=== PATIENT | female | born 1965 | race Caucasian/White ===

== ENCOUNTER 2017-08-12 17:33 | Emergency (ER) | payer OTHER ==
[~2017-08-12] VITALS: Ht 162.6 cm; Wt 70.5 kg
[~2017-08-12 17:33] MED LIST: CELEXA 20MG20 MG/TAB PO; LORTAB 5/500 501 TAB PO; NORCO 325 MG-7.1 TAB PO; [UNRECOGNIZED DRUG - OTHER]
[2017-08-12 17:36] VITALS: PULSE 79; TEMP 97.1
[2017-08-12] MEDS ORDERED: LO LOESTRIN FE1 TAB PO (19:57)
[2017-08-12] MEDS ORDERED: ZYRTEC 10MG10 MG PO (19:58)
[2017-08-12] MEDS ORDERED: ZOCOR 10MG10 MG PO (19:58)
[2017-08-12] MEDS ORDERED: CELEXA10 MG PO (19:58)
[2017-08-12] MEDS ORDERED: ASPIRIN 81M81 MG/TA2 PO (19:58)
[2017-08-12 22:14] VITALS: BP 178/98
== END 2017-08-12 22:14 | disposition home or self-care (01) ==
LOC: COL.ER 17:33
DX: S92.512A Displaced fracture of proximal phalanx of left lesser toe(s), initial encounter for closed fracture (principal); E78.00 Pure hypercholesterolemia, unspecified; Z79.82 Long term (current) use of aspirin; W22.8XXA Striking against or struck by other objects, initial encounter; Y92.009 Unspecified place in unspecified non-institutional (private) residence as the place of occurrence of the external cause
CPT/HCPCS: J3010

== ENCOUNTER 2018-06-30 19:24 | Emergency (ER) | payer OTHER ==
[~2018-06-30] VITALS: Ht 162.6 cm; Wt 67.7 kg
[~2018-06-30 19:24] MED LIST changes: +ASPIRIN 81M81 MG/TA2 PO; +CELEXA10 MG PO; +LO LOESTRIN FE1 TAB PO; +ZOCOR 10MG10 MG PO; +ZYRTEC 10MG10 MG PO
[2018-06-30 19:30] VITALS: TEMP 97.3
[2018-06-30 20:10] LABS: HEMATOCRIT 38.6 % (37.0-47.0); HEMOGLOBIN 13.1 g/dl (12.5-16.0); MEAN CELL VOLUME 88 fl (80.0-100.0); MEAN CORPUSCULAR HEMOGLOBIN 30 pg (27.0-31.0); MEAN CORPUSCULAR HGB CONC 34 g/dl (33.0-37.0); MEAN PLATELET VOLUME 9.6 fl (7.4-10.4); PLATELET COUNT 333 K/mm3 (130-400); RED BLOOD COUNT 4.37 M/mm3 (4.10-5.30); REDCELL DISTRIBUTION WIDTH-CV 11.9 % (11.5-14.5)
[2018-06-30 20:19] LABS: INR 0.9 (0.8-3.0); PROTHROMBIN TIME 10.6 SECONDS (9.7-12.8)
[2018-06-30 20:24] LABS: D-DIMER < 200.00 ng/mLDDu (200-230)
[2018-06-30 20:25] LABS: ALANINE AMINOTRANSFERASE 32 U/L (9-52); ALBUMIN 4.2 gm/dL (3.5-5.0); ALKALINE PHOSPHATASE 61 U/L (50-136); ANION GAP 7 mmol/L (7-16); AST,SGOT 46 U/L (15-37); BILIRUBIN,TOTAL 0.6 mg/dL (0.0-1.0); BLOOD UREA NITROGEN 16 mg/dL (7-17); CALCIUM 9.5 mg/dL (8.4-10.2); CARBON DIOXIDE 34 mmol/L (22-30); CHLORIDE 97 mmol/L (98-107); CREATININE, serum 0.86 mg/dL (0.52-1.25); GLUCOSE 128 mg/dL (74-106); POTASSIUM 3.2 mmol/L (3.4-5.0); SODIUM 138 mmol/L (137-145); TOTAL PROTEIN 7.4 gm/dL (6.4-8.2)
[2018-06-30 20:28] LABS: BAND 6 % (0-10); NEUTROPHILS 52 % (42.0-75.2); PLATELET ESTIMATE NORMAL (NORMAL)
[2018-06-30 20:29] LABS: LYMPHOCYTE 40 % (20.0-51.0)
[2018-06-30 20:37] LABS: TROPONIN-I < 0.012 ng/mL (0.000-0.034)
[2018-06-30] MEDS ORDERED: HCTZ 25MG TAB25 MG PO (21:04)
[2018-06-30] MEDS ORDERED: HYGROTON 2525 MG/TAB PO (21:05)
[2018-06-30 21:50] VITALS: BP 120/73; PULSE 78
[2018-06-30] MEDS ORDERED: TESSALON PERLE200 MG PO (22:13)
[2018-06-30] MEDS ORDERED: ZITHROMAX500 M2 PO (22:13)
== END 2018-06-30 22:40 | disposition home or self-care (01) ==
LOC: COL.ER 19:24
PROVIDERS: Emergency Medicine
DX: J20.9 Acute bronchitis, unspecified (principal); E87.6 Hypokalemia; J10.1 Influenza due to other identified influenza virus with other respiratory manifestations; E78.5 Hyperlipidemia, unspecified; Z98.890 Other specified postprocedural states; Z79.82 Long term (current) use of aspirin
CPT/HCPCS: A4216; J0696; J2405; J3010; J7030

== ENCOUNTER → 2022-08-22 | Outpatient (CLI) | payer OTHER ==
[~2022-08-22] MED LIST changes: +HCTZ 25MG TAB25 MG PO; +HYGROTON 2525 MG/TAB PO; +TESSALON PERLE200 MG PO; +ZITHROMAX500 M2 PO
== END ==
LOC: MHCPAIN 13:23
DX: M47.892 Other spondylosis, cervical region (principal); M54.12 Radiculopathy, cervical region; M54.6 Pain in thoracic spine; M25.511 Pain in right shoulder
CPT/HCPCS: G0463

== ENCOUNTER → 2022-09-04 | Outpatient (CLI) | payer OTHER | LOC: MHCPAIN 14:44 | DX: M47.812 Spondylosis without myelopathy or radiculopathy, cervical region (principal); M54.12 Radiculopathy, cervical region | CPT/HCPCS: J1100; Q9967 ==

== ENCOUNTER → 2022-10-19 | Outpatient (CLI) | payer OTHER | LOC: MHCPAIN 13:46 | DX: M47.812 Spondylosis without myelopathy or radiculopathy, cervical region (principal); M54.12 Radiculopathy, cervical region; M48.02 Spinal stenosis, cervical region | CPT/HCPCS: J1040; Q9967 ==

== ENCOUNTER → 2024-01-29 | Outpatient (CLI) | payer OTHER | LOC: MHCPAIN 07:55 | DX: M47.812 Spondylosis without myelopathy or radiculopathy, cervical region (principal); M50.30 Other cervical disc degeneration, unspecified cervical region; M48.02 Spinal stenosis, cervical region | CPT/HCPCS: G0463 ==